=== PATIENT | male | born 1940 | race Caucasian/White ===

== ENCOUNTER 2016-08-17 10:09 | Emergency (ER) | payer MEDICARE, OTHER ==
[2016-08-17 10:17] VITALS: BP 147/82
--- NOTE | 2016-08-17 11:30 | CR ---
Clinical history: 75-year-old male with heel pain (can't bear weight). Interpretation: Pes cavus, atavistic first cuneiform and hammertoe deformities. 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 Note: Large heel spurs at the insertion of the Achilles tendon (tendinitis and/or mild avulsion possible) and the plantar aponeurosis on the os calcis. Dense reactive sclerosis posterior aspect of the calcaneus and cannot entirely exclude the possibili ty of occult stress fracture. Clinical? No sign of pathologic skeletal lesion, acute left fracture or dislocation. CONCLUSION: Abnormal.
--- NOTE | 2016-08-17 17:26 | ER ---
SUBJECTIVE: The patient is a 75-year-old male, normally healthy. He was trying to get out of an easy chair recently and the foot rest would not go down so he kicked it hard, and when doing so, he injured his left heel, and it has been very tender and fragile to put weight on it ever since. He states if he walks on it, it is very painful. He denies any other falls or trauma. No injury. No knee pain. No leg pain other than the left heel. It did not involve his right foot. No shortness of breath. No fevers or recent illness. PAST MEDICAL HISTORY: Significant for abdominal hernia, hypertension. He has otherwise been healthy. CURRENT MEDICATIONS: Include: 1. Atenolol 50 mg p.o. daily. 2. Lisinopril-HCTZ (20-25) 1 p.o. daily. ALLERGIES: He has no allergies. SOCIAL HISTORY: He is . No substance abuse. He is here with his . REVIEW OF SYSTEMS: No fever, chills, chest pain, shortness of breath, recent illness, or head trauma. No bowel or bladder changes, bleeding, or nausea or vomiting. He just has the left heel pain as discussed in the HPI. OBJECTIVE: Vital Signs: Stable. He is afebrile. Healthy appearing. HEENT: Normocephalic, atraumatic. Good historian. No respiratory distress. He is sitting in a wheelchair guarding his left foot. Extremities: Focused examination of left lower extremity, no knee involvement. He has a soft and nontender left calf. No signs of compartment syndrome. He has a negative Homans sign. No signs of DVT. He has good pedal pulse, good posterior tibial pulse. He has good cap refill. He can wiggle his toes. Movement of his foot okay. He is tender in a nonspecific pattern mostly when he weight bears. No crepitus and no deformity noted. His ankle is nontender. He has no tenderness at the head of the fifth metatarsal. It appears only involves his heel. His Achilles tendon is non-remarkable. He is sent for x-ray. There is no definite fracture noted, although the radiologist sees some sclerosis and cannot rule out an occult or stress type fracture. This was discussed with the patient. ASSESSMENT: Left heel contusion although cannot rule out occult fracture. PLAN: We will place the patient on a walking boot, he will take Tylenol and ibuprofen for pain and for breakthrough pain not controlled by the above, I have given him a small prescription of tramadol 50 mg 1 p.o. t.i.d. p.r.n. severe pain #20, no refills. He will elevate his leg as much as possible. Gentle range of motion while he has his leg elevated. He can walk on it with a walking boot. Recommend see PCP in clinic in 1-1/2 to 2 weeks for recheck and x-ray and see if any fracture can then be visualized. He did verbalize understanding and agreement with this plan. He will follow up at that time. He will otherwise stay with family, continue with his meds. [facility] /[id number]
== END 2016-08-17 12:59 | disposition home or self-care (01) ==
LOC: DL.ED 10:09
DX: S90.32XA Contusion of left foot, initial encounter (principal); I10 Essential (primary) hypertension; W22.8XXA Striking against or struck by other objects, initial encounter
CPT/HCPCS: 73630-LT; 99283

== ENCOUNTER 2022-10-05 19:25 | Emergency (ER) | payer MEDICARE, OTHER ==
[2022-10-05] MEDS ORDERED: Sodium Chloride 0.9% 10 ML Syringe FLUSH PRN (20:17)
[2022-10-05 20:19] VITALS: BP 193/102; PULSE 69
[2022-10-05 20:31] LABS: BASOPHILS PERCENT AUTO 0.4 % (0.0-1.0); EOSINOPHILS PERCENT AUTO 2.8 % (1.0-3.0); HEMATOCRIT 46.5 % (40.0-54.0); HEMOGLOBIN 15.8 g/dL (14.0-18.0); LYMPHOCYTES PERCENT AUTO 22.2 % (20.5-50.1); MEAN CORPUSCULAR HEMOGLOBIN 31.4 pg (27.0-34.0); MEAN CORPUSCULAR VOLUME 92.4 fL (80-100); MONOCYTES PERCENT AUTO 11.5 % (2-8); NEUTROPHILS PERCENT AUTO 63.1 % (42.2-75.2); PLATELET COUNT,PLT 141 10^3/uL (150-450); RED BLOOD CELL COUNT 5.03 10^6/uL (4.6-6.2); WHITE BLOOD CELL COUNT,WBC 6.9 10^3/uL (5.0-10.0)
[2022-10-05] MEDS ORDERED: Labetalol 20 MG/4 ML Syringe IVPUSH ONE (20:31)
[2022-10-05 20:52] LABS: A/G RATIO 0.8; ALBUMIN 3.5 g/dL (3.4-5.0); ANION GAP 11.5 mEq/L (7-13); BILIRUBIN TOTAL 1.3 mg/dL (0.2-1.0); BUN/CREATININE RATIO 17.5 (No establ ref range); CALCIUM 8.7 mg/dL (8.5-10.1); CREATININE 1.14 mg/dL (0.70-1.30); EST CRCL DRUG DOSING (CG) 54.83 mL/min; INR 1.1 (0.9-1.2); MAGNESIUM 2.1 mg/dL (1.8-2.4); POTASSIUM,K 3.5 mmol/L (3.5-5.1); PROTEIN TOTAL,TP 7.7 g/dL (6.4-8.2); PROTHROMBIN TIME 11.4 SEC (9.0-12.0)
== END 2022-10-05 21:59 | disposition home or self-care (01) ==
LOC: DL.ED 19:25
DX: I83.91 Asymptomatic varicose veins of right lower extremity (principal); I48.91 Unspecified atrial fibrillation; I15.9 Secondary hypertension, unspecified
CPT/HCPCS: 36415; 80053; 83735; 83880; 85025; 85610; 93005; 96374; 99285; J3490; 93010; 99284